=== PATIENT | female | born 1990 | race African-American/Black ===

== ENCOUNTER 2016-05-02 16:52 | Emergency (ER) | payer OTHER ==
[2016-05-02 16:53] VITALS: BP 122/83; PULSE 60; RESP 20; TEMP 97.8; O2SAT 100
[2016-05-02 21:15] VITALS: RESP 18; O2SAT 98
--- NOTE | 2016-05-02 21:20 | PD ---
HPI Chief Complaint: Seizure Time Seen by Provider: 21:19 Travel History International Travel<30 days: No Contact w/Intl Traveler<30days: No Traveled to known affect area: No History of Present Illness HPI 25-year-old female presents to the emergency department for evaluation of possible seizure. The patient states that about 6 hours ago she was at work and was having a conversation with a coworker when she believes she may have had a seizure. States that the last thing she remembers is talking to her coworker and then she remembers waking up on the floor. The patient's coworker who witnessed the event is present and provides history of the event. She states that while the patient was talking to her she stated she suddenly felt nauseous and then fell to the floor where she became very stiff and was making "gargling noises." States that they rolled her on her side and this lasted for approximately 3 minutes. States that for about an hour after the event took place the patient was very lethargic and slightly disoriented. The patient states that she did not bite her tongue or lips, denies any incontinence. States that she has felt normal since this occurred. States she has a very mild headache. Denies any nausea, vomiting, chest, shortness of breath, abdominal pain, numbness or tingling, weakness. Denies any medical conditions. Denies taking any medications regularly. Denies alcohol or drug use. Denies , last menstrual period one month ago. No other complaints. PFSH Past Medical History Medical History: Denies Significant Hx ?: Not Social History Alcohol Use: No Tobacco Use: No Substance Use: No Allergies-Medications (Allergen,Severity, Reaction): Coded Allergies: Bees (Verified Allergy, Unknown, 05/02/16) Reported Meds & Prescriptions Reported Meds & Active Scripts Active No Active Prescriptions or Reported Medications Review of Systems Except as stated in HPI: all other systems reviewed are Neg Physical Exam Narrative GENERAL: Well-nourished and well-developed pleasant patient in no acute distress who is nontoxic appearing. SKIN: Warm and dry. HEAD: Normocephalic and atraumatic. No facial droop. EYES: No injection, drainage, or hyphema noted. PERRLA. EOMI. ENT: No nasal drainage noted. Oropharynx is clear. NECK: Supple and the trachea is midline. CARDIOVASCULAR: Regular rate and rhythm. RESPIRATORY: Breath sounds are equal bilaterally with no accessory muscle use, wheezing, rhonchi, or crackles. GASTROINTESTINAL: Abdomen is soft, non-tender, and nondistended. MUSCULOSKELETAL: No obvious deformities, swelling, cyanosis, or ecchymosis is present throughout the upper and lower extremities. Patient has full range of motion without any signs of neurovascular compromise. Strength 5/5 upper and lower extremities and equal bilaterally. NEUROLOGICAL: Awake, alert, and oriented. Normal speech and gait. Normal heel- to-claros test. Normal rapid alternating movements. Normal finger to nose test. Cranial nerves are grossly intact. Data Data Last Documented VS Vital Signs Date Time Temp Pulse Resp B/P Pulse Ox O2 Delivery O2 Flow Rate FiO2 05/02/16 21:15 71 18 98 Room Air 05/02/16 16:53 97.8 122/83 Orders Complete Blood Count With Diff (05/02/16 21:16) Alcohol (Ethanol) (05/02/16 21:16) Drug Screen, Random Urine (05/02/16 21:16) Electrocardiogram (05/02/16 ) Ct Brain W/O Iv Contrast(Rout) (05/02/16 ) Ecg Monitoring (05/02/16 21:16) Iv Access Insert/Monitor (05/02/16 21:16) Oximetry (05/02/16 21:16) Comprehensive Metabolic Panel (05/02/16 21:16) Sodium Chloride 0.9% Flush (Ns Flush) (05/02/16 21:30) Labs Laboratory Tests Test 05/02/16 05/02/16 21:20 22:40 White Blood Count 10.1 TH/MM3 Red Blood Count 4.05 MIL/MM3 Hemoglobin 12.1 GM/DL Hematocrit 35.4 % Mean Corpuscular Volume 87.5 FL Mean Corpuscular Hemoglobin 29.9 PG Mean Corpuscular Hemoglobin 34.2 % Concent Red Cell Distribution Width 13.1 % Platelet Count 393 TH/MM3 Mean Platelet Volume 9.6 FL Neutrophils (%) (Auto) 63.9 % Lymphocytes (%) (Auto) 26.8 % Monocytes (%) (Auto) 7.2 % Eosinophils (%) (Auto) 1.5 % Basophils (%) (Auto) 0.6 % Neutrophils # (Auto) 6.5 TH/MM3 Lymphocytes # (Auto) 2.7 TH/MM3 Monocytes # (Auto) 0.7 TH/MM3 Eosinophils # (Auto) 0.2 TH/MM3 Basophils # (Auto) 0.1 TH/MM3 CBC Comment DIFF FINAL Differential Comment Sodium Level 140 MEQ/L Potassium Level 3.8 MEQ/L Chloride Level 104 MEQ/L Carbon Dioxide Level 29.3 MEQ/L Anion Gap 7 MEQ/L Blood Urea Nitrogen 7 MG/DL Creatinine 0.82 MG/DL Estimat Glomerular Filtration 101 ML/MIN Rate Random Glucose 82 MG/DL Calcium Level 8.6 MG/DL Total Bilirubin 0.2 MG/DL Aspartate Amino Transf 16 U/L (AST/SGOT) Alanine Aminotransferase 24 U/L (ALT/SGPT) Alkaline Phosphatase 56 U/L Total Protein 7.4 GM/DL Albumin 3.6 GM/DL Ethyl Alcohol Level LESS THAN 3 MG/DL Urine Opiates Screen NEG Urine Barbiturates Screen NEG Urine Amphetamines Screen NEG Urine Benzodiazepines Screen NEG Urine Cocaine Screen NEG Urine Cannabinoids Screen NEG MDM Medical Decision Making Medical Screen Exam Complete: Yes Emergency Medical Condition: Yes Differential Diagnosis Seizure versus syncope versus electrolyte abnormality versus intracranial abnormality Narrative Course 25-year-old female presents to the emergency department for evaluation of seizure like episode that occurred at work today. Patient is afebrile, vital signs are stable. Physical examination is essentially unremarkable. No focal neurologic deficits. IV access is obtained, labs been drawn and sent. Head CT has been ordered and is pending. EKG shows sinus rhythm with no acute ST elevations or depressions. CT is negative for any acute abnormalities. Urine test is negative. CBC is unremarkable. CMP is unremarkable. EtOH is less than 3. Urine drug screen is negative. This is a one-time new-onset seizure. Patient is instructed to follow-up with a neurologist as an outpatient. Discussed seizure precautions. Instructed not to drive, swim, operate heavy machinery. She will be discharged to home. I discussed the case with my attending physician Dr. Mliligan who is aware of the patients history, physical examination findings, and treatment plan. Diagnosis Primary Impression: New onset seizure Referrals: Neurologist Patient Instructions: General Instructions, New-Onset Seizure in Adults (ED) Additional Instructions: No driving, swimming, or operating heavy machinery until cleared by neurologist. Follow-up with a neurologist. Return to the ED for any acute worsening of symptoms. Med/Other Pt SpecificInfo: No Change to Meds Scripts No Active Prescriptions or Reported Meds Disposition: 01 DISCHARGE HOME Condition: Stable Rosa Elena Hernandez May 02, 2016 21:20
[2016-05-02] MEDS ORDERED: SODIUM CHLORIDE 0.9% FLUSH 5 ML FLUSH IVF PRN (21:30)
[2016-05-02 21:40] LABS: AUTOMATED NEUTROPHIL # 6.5 TH/MM3 (1.8-7.7); BASOPHIL # 0.1 TH/MM3 (0-0.2); BASOPHIL % 0.6 % (0.0-2.0); EOSINOPHIL # 0.2 TH/MM3 (0-0.4); EOSINOPHIL % 1.5 % (0.0-4.0); HEMATOCRIT 35.4 % (35.0-46.0); HEMO FLAGS DIFF FINAL; LYMPH % 26.8 % (9.0-44.0); LYMPHOCYTE # 2.7 TH/MM3 (1.0-4.8); MEAN CELL VOLUME 87.5 FL (80.0-100.0); MEAN CORPUSCULAR HEMOGLOBIN 29.9 PG (27.0-34.0); MEAN CORPUSCULAR HGB CONC 34.2 % (32.0-36.0); MONO % 7.2 % (0.0-8.0); NEUT % 63.9 % (16.0-70.0); PLATELET COUNT 393 TH/MM3 (150-450); RED BLOOD COUNT 4.05 MIL/MM3 (4.00-5.30); RED CELL DISTRIBUTION WIDTH 13.1 % (11.6-17.2); WHITE BLOOD COUNT 10.1 TH/MM3 (4.0-11.0)
[2016-05-02 21:54] LABS: ANION GAP 7 MEQ/L (5-15)
[2016-05-02 21:57] LABS: ALKALINE PHOSPHATASE 56 U/L (45-117); ALT (GPT) 24 U/L (10-53); AST (GOT) 16 U/L (15-37); BICARBONATE 29.3 MEQ/L (21.0-32.0); BLOOD UREA NITROGEN 7 MG/DL (7-18); CHLORIDE 104 MEQ/L (98-107); GLOMERULAR FILTRATION RATE 101 ML/MIN (>89); POTASSIUM 3.8 MEQ/L (3.5-5.1); SODIUM (NA) 140 MEQ/L (136-145); TOTAL BILIRUBIN ADULT 0.2 MG/DL (0.2-1.0)
--- NOTE | 2016-05-02 22:08 | RADRPT ---
EXAM DATE/TIME: 05/02/2016 21:39 [facility] COMPARISON: No previous studies available for comparison. INDICATIONS : Seizure. RADIATION DOSE: 34.74 CTDIvol (mGy) MEDICAL HISTORY : None SURGICAL HISTORY : None. ENCOUNTER: Initial ACUITY: 1 day PAIN SCALE: 0/10 LOCATION: cranial TECHNIQUE: Multiple contiguous axial images were obtained of the head. Using automated exposure control and adj ustment of the mA and/or kV according to patient size, radiation dose was kept as low as reasonably a chievable to obtain optimal diagnostic quality images. FINDINGS: CEREBRUM: The ventricles are normal for age. No evidence of midline shift, mass lesion, hemorrhage or acute in farction. No extra-axial fluid collections are seen. POSTERIOR FOSSA: The cerebellum and brainstem are intact. The 4th ventricle is midline. The cerebellopontine angle i s unremarkable. EXTRACRANIAL: The visualized portion of the orbits is intact. SKULL: The calvaria is intact. No evidence of skull fracture. CONCLUSION: Normal examination for a patient of this age. Jose Obregon MD on May 02, 2016 at 22:06 Board Certified Radiologist. This report was verified electronically.
[2016-05-02 23:01] LABS: AMPHETAMINE, URINE NEG (NEG); BARBITURATES, URINE NEG (NEG); COCAINE, URINE NEG (NEG)
--- NOTE | 2016-05-03 10:05 | EKG ---
Date Performed: 05/02/2016 Time Performed: 22:09:01 PTAGE: 25 years EKG: SINUS BRADYCARDIA BORDERLINE ECG NO PREVIOUS TRACING DOCTOR: Seng Soares Interpretating Date/Time 05/03/2016 10:02:19
== END 2016-05-02 23:40 | disposition home or self-care (01) ==
LOC: NEPC 16:52
DX: R56.9 Unspecified convulsions (principal); R11.0 Nausea; R53.83 Other fatigue; R41.0 Disorientation, unspecified; R94.31 Abnormal electrocardiogram [ECG] [EKG]
CPT/HCPCS: 70450; 80053; 80307; 85025; 93005